=== PATIENT | female | born 1930 | race Caucasian/White ===

== ENCOUNTER → 2016-08-23 | Day surgery (SDC) | payer MEDICARE, OTHER ==
[~2016-08-23] VITALS: Ht 175.3 cm; Wt 65.4 kg
[~2016-08-23] MED LIST: ALDACTONE25 MG PO; ASPERCREME90 GM/TUBE TOP; ASPIRIN EC81 MG PO; CALTRATE+D3 PL1 EACH PO; CENTRUM SILVER1 TAB PO; CULTURELLE CHE1 EACH PO; FEMARA 2.5 MG2.5 MG PO; KEFLEX250 MG PO; KLONOPIN0.5 MG PO; KLONOPIN1 MG PO; LASIX20 MG PO; LEVOTHROID (S100 MCG PO; LEXAPRO10 MG PO; LINZESS145 MCG PO; LYRICA 25MG CAP25 MG PO; MACROBID100 MG PO; MAG-OX-400(241400 MG PO; MELATONIN10 M2 PO; NOVOLOG100 UNIT/M SUB-Q; OMEPRAZOLE40 MG PO; SINEMET 25-1001 EACH PO; TRIMETHOPRIM100 MG PO; TYLENOL325 MG PO; ULTRAM50 MG PO; VANCOCIN ORAL250 MG PO; VITAMIN B-6100 MG PO; WELCHOL 625MG625 MG PO
== END ==
LOC: GPOC 08-19 09:00 → GEND 07:30
PROC: 0DJ08ZZ Inspection of Upper Intestinal Tract, Via Natural or Artificial Opening Endoscopic (ICD-10-PCS; principal; 2016-08-23)
DX: A04.7 Enterocolitis due to Clostridium difficile (principal); K21.9 Gastro-esophageal reflux disease without esophagitis; K64.9 Unspecified hemorrhoids; K44.9 Diaphragmatic hernia without obstruction or gangrene; M19.90 Unspecified osteoarthritis, unspecified site; E11.40 Type 2 diabetes mellitus with diabetic neuropathy, unspecified; E07.9 Disorder of thyroid, unspecified; E78.00 Pure hypercholesterolemia, unspecified; I95.9 Hypotension, unspecified; Z90.49 Acquired absence of other specified parts of digestive tract; Z98.890 Other specified postprocedural states
CPT/HCPCS: J7030

== ENCOUNTER → 2016-09-10 | Outpatient (CLI) | payer MEDICARE, OTHER ==
[2016-09-10 19:42] LABS: BILIRUBIN URINE NEGATIVE (NEGATIVE); BLOOD URINE 10 /UL (NEGATIVE); COLOR URINE YELLOW (YELLOW); GLUCOSE URINE NEGATIVE (NEGATIVE); KETONE URINE NEGATIVE (NEGATIVE); LEUKOCYTES URINE 500 /UL (NEGATIVE); NITRITE URINE POSITIVE (NEGATIVE); PROTEIN URINE 30 mg/dL (NEGATIVE); TURBIDITY URINE 1+ (CLEAR); UROBILINOGEN URINE NORMAL (NORMAL)
[2016-09-10 19:50] LABS: WBC URINE 50-100 #/HPF (NEGATIVE)
[2016-09-10 19:53] LABS: RBC URINE 0-2 #/HPF (NEGATIVE)
[2016-09-10 19:54] LABS: BACTERIA URINE MANY (NEGATIVE); EPITHELIAL URINE 0-2 #/HPF (NEGATIVE); RENAL EPITH URINE 0-2 #/HPF (NEGATIVE)
== END | disposition disaster alternative care site (69) ==
LOC: LHHCN 19:34
PROVIDERS: Urology
DX: N30.20 Other chronic cystitis without hematuria (principal); N39.0 Urinary tract infection, site not specified; E11.40 Type 2 diabetes mellitus with diabetic neuropathy, unspecified

== ENCOUNTER → 2016-10-04 | Day surgery (SDC) | payer MEDICARE, OTHER ==
[~2016-10-04] VITALS: Ht 175.3 cm; Wt 69.7 kg
--- NOTE | ~2016-10-04 | OR ---
PATIENT'S NAME: JUNITO EDGE [facility] AGE: 85 Y [address] ROOM: [place] [address] [place] [facility] [place]: 10[place]04[place] OR/Procedure Report DISCHARGE DATE: FAMILY PHYSICIAN: Timmy Christianson MD ATTENDING PHYSICIAN: Jonathan Thapa SURGEON: Jonathan Thapa MD GAS OPERATIONS ANALYST: DATE OF PROCEDURE: 10/04/2016 PREOPERATIVE DIAGNOSES: 1. Abnormal bone scan, right kidney. 2. Recurrent cystitis. POSTOPERATIVE DIAGNOSIS: Malrotation, right kidney with full renal pelvis. PROCEDURES: Cystoscopy and retrograde pyelograms. DESCRIPTION OF PROCEDURE: After adequate anesthesia, she was prepped and draped. A urine sample was obtained for culture. The cystoscope was inserted. The bladder was examined, it was entirely normal. There were no abnormalities in the bladder. No tumors, stones, or other abnormalities. Bilateral retrograde pyelograms were done. Pelvic exam revealed a normal vagina. There were no palpable pelvic masses. Rectal was negative. RETROGRADE PYELOGRAM REPORT: The initial film showed degenerative changes of the lumbar spine. There was a mechanical pain pump in the area of the right kidney. After injection of contrast media, the left ureter was normal in course and caliber. Left kidney was normal with no obstruction or hydronephrosis. The injection on the right side showed the right ureter to be normal. The kidney was right over the pain pump and difficult to see. Therefore, lateral views were taken and this showed that the kidney was malrotated with a full renal pelvis, but normal calyceal system. 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 JONATHAN THAPA MD PAT[facility] AGE: 85 Y [address] ROOM: [place] [address] [place] [facility] [place]: 10/04/2016 OR/Procedure Report DISCHARGE DATE: FAMILY PHYSICIAN: Timmy Christianson MD ATTENDING PHYSICIAN: Jonathan Tahpa EKL/modl /[id number] CC: Lesvia Christianson MD d: 10/04/16 0848 t: 10/05/16 0433, OPERATIVE SUMMARY
--- NOTE | ~2016-10-04 | HP ---
PATIENT'S NAME: JUNITO EDGE [facility] AGE: 85 Y [address] ROOM: [place] [address] LOCATION: [facility] [place] ADMIT DATE: 10/04/2016 History & Physical DISCHARGE DATE: FAMILY PHYSICIAN: PHYSICIAN, UNKNOWN ATTENDING PHYSICIAN: Jonathan Thapa DATE OF SERVICE: 10/04/2016 HISTORY OF PRESENT ILLNESS: An 85-year-old white female who has a long history of recurrent cystitis. Urine cultures revealed numerous different types of organisms, Pseudomonas and E coli. When she has been on long-term low-dose antimicrobial treatment, she has done fine, but once this is discontinued, then she again has infection. Over the past 6 months, she has had multiple admissions because of sepsis with high temperatures and positive urine cultures and, at times, blood cultures. She was just recently dismissed from [facility] after being treated for urinary tract infection. She just recently had a fecal transplant for C difficile. In the past, her CT scans have been unremarkable. She recently had a bone scan that showed questionable obstruction to the left kidney and is seen now for cysto and retrogrades. PAST MEDICAL HISTORY: Illnesses: 1. Arthritis. 2. Diabetes mellitus. 3. Peptic ulcer disease. 4. Cancer of the breast. Operations: 1. Cholecystectomy. 2. Lumbar fusion. 3. Total abdominal hysterectomy. 4. Exploratory laparotomy. 5. Appendectomy. ALLERGIES: CLEOCIN AND FELDENE. PHYSICAL EXAMINATION: GENERAL: A well-developed, alert female. CHEST: Clear. PATIENT'S NAME: JUNITO EDGE [facility] AGE: 85 Y [address] ROOM: [place] [address] LOCATION: [facility] [place] ADMIT DATE: 10/04/2016 History & Physical DISCHARGE DATE: FAMILY PHYSICIAN: PHYSICIAN, UNKNOWN ATTENDING PHYSICIAN: Jonathan Thapa HEART: Normal sinus rhythm. ABDOMEN: Soft, with no palpable masses. PELVIC AND RECTAL: Deferred until cystoscopy. IMPRESSION: 1. Urinary tract infections, recurrent. 2. Urinary sepsis, recurrent. 3. Abnormal bone scan with possible renal obstruction. PLAN: As above. MD JOBY NIELSEN/modl /[id number] D: [id number] T: [id number] HISTORY & PHYSICAL
== END | disposition disaster alternative care site (69) ==
LOC: GPOC 10-01 13:00 → GSDC 06:00
PROC: BT14ZZZ Fluoroscopy of Kidneys, Ureters and Bladder (ICD-10-PCS; principal; 2016-10-04)
DX: Q63.2 Ectopic kidney (principal); N39.0 Urinary tract infection, site not specified; E11.9 Type 2 diabetes mellitus without complications; M19.90 Unspecified osteoarthritis, unspecified site; Z87.11 Personal history of peptic ulcer disease; Z85.3 Personal history of malignant neoplasm of breast; Z90.49 Acquired absence of other specified parts of digestive tract; Z90.710 Acquired absence of both cervix and uterus; Z88.1 Allergy status to other antibiotic agents; Z88.8 Allergy status to other drugs, medicaments and biological substances; Z98.1 Arthrodesis status; Z98.890 Other specified postprocedural states
CPT/HCPCS: C1769; J7030